=== PATIENT | male | born 1950 | race Caucasian/White ===

== ENCOUNTER 2018-06-04 12:13 | Outpatient (CLI) | payer MEDICARE, BC ==
[2018-06-04 13:01] LABS: CLARITY,URINE CLEAR (Clear); COLOR,URINE STRAW (Yellow); GLUCOSE, URINE NEGATIVE (Neg); KETONES,URINE NEGATIVE (Neg); LEUKOCYTE ESTERASE ,URINE TRACE (Neg); NITRITES, URINE NEGATIVE (Neg); OCCULT BLOOD,URINE NEGATIVE (Neg); PROTEIN,URINE NEGATIVE (Neg); UA COLLECTION TYPE VOIDED; UROBILINOGEN,URINE 0.2 E.U/dL (0.2-1.0)
[2018-06-04 13:04] LABS: BASOPHILS # (AUTO) 0.1 X10'3 (0-0.2); BASOPHILS % (AUTO) 1.1 % (0-1); EOSINOPHILS # (AUTO) 0.2 X10'3 (0-0.9); EOSINOPHILS % (AUTO) 3.1 % (0-6); HEMATOCRIT 45.5 % (35.0-45.0); HEMOGLOBIN 15.1 g/dl (12.0-16.0); LYMPHOCYTES # (AUTO) 1.6 X10'3 (1.1-4.8); LYMPHOCYTES % (AUTO) 25.3 % (21-51); MEAN CORPUSCULAR HEMOGLOBIN 30.3 PG (27.0-31.0); MEAN CORPUSCULAR HGB CONC 33.3 g/dL (33.0-36.5); MEAN CORPUSCULAR VOLUME 91.2 FL (78-98); MEAN PLATELET VOLUME 8.6 FL (7.4-10.4); MONOCYTES # (AUTO) 0.7 X10'3 (0-0.9); MONOCYTES % (AUTO) 10.6 % (2-12); NEUTROPHILS # (AUTO) 3.7 X10'3 (1.8-7.7); NEUTROPHILS % (AUTO) 59.9 % (42-75); PLATELET COUNT 285 X10'3 (140-440); RED BLOOD COUNT 4.99 X10'6 (4.20-5.60); RED CELL DISTRIBUTION WIDTH 14.3 % (11.5-14.5); WHITE BLOOD COUNT 6.2 X10'3 (4.5-11.0)
[2018-06-04 13:07] LABS: CREATININE 0.99 MG/DL (0.40-0.90); SODIUM 139 MMOL/L (135-145); eGFR 56 ML/MIN
[2018-06-04 13:13] LABS: BACTERIA,URINE NONE SEEN /HPF (Neg); RBC,URINE NONE SEEN /HPF (0-2); SQUAMOUS EPITHELIAL CELL,UR FEW /LPF (FEW); WBC,URINE 0-4 /HPF (0-4)
[2018-06-04 13:14] LABS: PROTHROMBIN TIME 10.6 SECONDS (9.0-12.0)
== END 2018-06-04 23:59 | disposition home or self-care (01) ==
LOC: EDSEX → LAB 12:13
PROVIDERS: ATTEND Urology
DX: C61 Malignant neoplasm of prostate (principal); Z91.030 Bee allergy status; Z88.6 Allergy status to analgesic agent; Z01.812 Encounter for preprocedural laboratory examination; Z01.811 Encounter for preprocedural respiratory examination
CPT/HCPCS: 36415; 71046; 81001; 82565; 84132; 84295; 85025; 85610; 87088

== ENCOUNTER 2018-06-05 10:20 | Outpatient (CLI) | payer MEDICARE, BC | END 2018-06-05 23:59 | disposition home or self-care (01) | LOC: RAD 10:20 → EDSEX 10:20 → RAD 23:59 | PROVIDERS: ATTEND Urology | DX: C61 Malignant neoplasm of prostate (principal); Z01.818 Encounter for other preprocedural examination; Z91.030 Bee allergy status; Z88.6 Allergy status to analgesic agent | CPT/HCPCS: 93005 ==

== ENCOUNTER 2018-12-14 09:28 | Outpatient (CLI) | payer MEDICARE, BC | END 2018-12-14 23:59 | disposition home or self-care (01) | LOC: RAD 09:28 | PROVIDERS: ATTEND Urology | DX: C61 Malignant neoplasm of prostate (principal) | CPT/HCPCS: 76856 ==

== ENCOUNTER 2019-05-08 05:52 | Day surgery (SDC) | payer MEDICARE, BC ==
[2019-05-06 14:38] LABS: BASOPHILS % (AUTO) 0.4 % (0-1); EOSINOPHILS # (AUTO) 0.2 X10'3 (0-0.9); EOSINOPHILS % (AUTO) 2.9 % (0-6); LYMPHOCYTES # (AUTO) 1.7 X10'3 (1.1-4.8); LYMPHOCYTES % (AUTO) 20.7 % (21-51); MEAN CORPUSCULAR HEMOGLOBIN 31.1 PG (27.0-31.0); MEAN CORPUSCULAR VOLUME 91.4 FL (78-98); MEAN PLATELET VOLUME 8.8 FL (7.4-10.4); MONOCYTES # (AUTO) 0.7 X10'3 (0-0.9); MONOCYTES % (AUTO) 8.4 % (2-12); NEUTROPHILS # (AUTO) 5.7 X10'3 (1.8-7.7); NEUTROPHILS % (AUTO) 67.6 % (42-75); PRE OP HEMATOCRIT 44.4 % (42.0-52.0); PRE OP HEMOGLOBIN 15.1 g/dL (14.0-17.9); PRE OP PLATELET COUNT 258 X10'3 (140-440); RED BLOOD COUNT 4.85 X10'6 (4.70-6.10); RED CELL DISTRIBUTION WIDTH 14.3 % (11.5-14.5)
[2019-05-06 14:38] LABS: CLARITY,URINE CLEAR (Clear); COLOR,URINE YELLOW (Yellow); GLUCOSE, URINE NEGATIVE (Neg); KETONES,URINE NEGATIVE (Neg); LEUKOCYTE ESTERASE ,URINE NEGATIVE (Neg); NITRITES, URINE NEGATIVE (Neg); OCCULT BLOOD,URINE NEGATIVE (Neg); PH,URINE 5.5 (4.8-8.0); PROTEIN,URINE NEGATIVE (Neg); UROBILINOGEN,URINE 0.2 E.U/dL (0.2-1.0)
[2019-05-06 14:45] LABS: UA COLLECTION TYPE CLN CATCH MIDSTREAM
[2019-05-06 14:52] LABS: ALBUMIN 3.4 G/DL (3.4-5.0); ALBUMIN/GLOBULIN RATIO 0.9 (1.1-1.5); ALKALINE PHOSPHATASE 59 IU/L (46-116); BLOOD UREA NITROGEN 13 MG/DL (7-18); BUN/CREATININE RATIO 12.6 (5.4-32.0); CALCIUM 8.5 MG/DL (8.5-10.1); CHLORIDE 108 MMOL/L (99-107); CREATININE 1.03 MG/DL (0.60-1.10); PRE OP ALT 16 U/L (30-65); PRE OP ANION GAP 6 (8-16); PRE OP AST 19 U/L (10-37); PRE OP BILIRUB, TOTAL 0.4 MG/DL (0.0-1.0); PRE OP GLUCOSE 94 MG/DL (70-104); PRE OP SODIUM 145 MMOL/L (135-145); TOTAL CARBON DIOXIDE 30.8 MMOL/L (24-32); eGFR 72 ML/MIN
[~2019-05-08] VITALS: Ht 172.7 cm; Wt 78.9 kg
[2019-05-08] VITALS (13 sets, daily range): BP systolic 96–136; BP diastolic 45–78
[~2019-05-08 05:52] MED LIST: CHOL200077 PO; FLUT16SP2 BOTHNARES; OMEP40CA13 PO; SILD100T PO; cefazolin/dext.iso 2gm/50ml 50 ML IV ONE; famotidine 20mg tablet PO ONE; ringers solution, lacted 1,000 ML IV SCH
[2019-05-08] MEDS ORDERED: BUPIVAcaine/PF 2.5 mg/ml (0.25%) 30ml vial ONE (06:47)
[2019-05-08] MEDS ORDERED: ceFAZolin 1000mg inj ONE (06:47)
[2019-05-08] MEDS ORDERED: LIDOcaine 1% (10mg/ml) 2ml vial ONE (07:06)
[2019-05-08] MEDS ORDERED: ringers solution, lacted 1,000 ML IV SCH (08:27)
[2019-05-08] MEDS ORDERED: morphine 4 MG/ML inj SYRINge IV PRN (08:30)
[2019-05-08] MEDS ORDERED: ketorolac trometh. 30mg/ml inj. IV ONE (08:30)
[2019-05-08] MEDS ORDERED: acetaminophen 1,000mg/100ml IV 100 ML IV PRN (08:30)
[2019-05-08] MEDS ORDERED: morphine 2 MG/ML inj. syringe IV PRN (08:30)
[2019-05-08] MEDS ORDERED: proCHLORperazine 10 MG/2 ml inj IV PRN (08:30)
[2019-05-08] MEDS ORDERED: meperidine/PF 25mg/ml syringe IV PRN ×3 (08:30)
[2019-05-08] MEDS ORDERED: ondansetron/PF 4mg/2ml inj IV PRN (08:30)
[2019-05-08] MEDS ORDERED: sevoflurane 250ml liquid IH ONE (09:01)
[2019-05-08] MEDS ORDERED: rocuronium 10mg/ml inj IV ONE (09:01)
[2019-05-08] MEDS ORDERED: fentaNYL/PF 50MCG/1 ML 2ML syringe ONE (09:08)
[2019-05-08] MEDS ORDERED: midazolam 2 mg/2 ml injection ONE (09:08)
[2019-05-08] MEDS ORDERED: LIDOcaine 4% LTA kit 4ml solution TP ONE (09:12)
[2019-05-08] MEDS ORDERED: 0.9 % SODIUM CHLORIDE 10 ML VIAL ONE ×2 (09:23→09:24)
[2019-05-08] MEDS ORDERED: ePHEDrine 50MG/ML INJ. ONE (09:24)
[2019-05-08] MEDS ORDERED: dexamethasone sod phosphate 4mg/ml inj. ONE (09:25)
[2019-05-08] MEDS ORDERED: LIDOcaine 2% (20mg/ml) 5ml vial ONE (09:25)
[2019-05-08] MEDS ORDERED: propofol inj 20 ML IV ONE (09:25)
[2019-05-08] MEDS ORDERED: ondansetron/PF 4mg/2ml inj ONE (09:32)
[2019-05-08] MEDS ORDERED: neostigmine methylsulfate 1 MG/ML 10ml vial ONE (10:16)
[2019-05-08] MEDS ORDERED: glycopyrrolate 0.2mg/ml inj ONE (10:16)
[2019-05-08] MEDS ORDERED: ketorolac trometh. 30mg/ml inj. ONE (10:24)
--- NOTE | 2019-05-08 10:37 | NUR ---
Received from OR via [facility], accompanied by Anesthesiologist DR HUDSON and report given by Anesthesiologist. PT DROWSY, DENIES PAIN, ABDOMEN W/3 LAP SITES W/BANDAIDS CDI. Addendum: 05/08/19 at 1112 by Feli Blakely RN Amended: Links added.
--- NOTE | 2019-05-08 11:29 | NUR ---
Received from OR via [facility], accompanied by Anesthesiologist DR KENNY and report given by Anesthesiologist. PT VERY DROWSY, NO S/S OF DISTRESS/DISCOMFORT, LEFT FOOT/ANKLE W/DRSG, FINA WRAP COVERING CDI, TOES PWD, MATE SHIP 1-2 SECONDS. Addendum: 05/08/19 at 1141 by Feli Blakely RN ERROR- WRONG PT.
[2019-05-08] MEDS ORDERED: HYDROcodone/acetaminophen 10/325mg tab PO ONE (12:45)
--- NOTE | 2019-05-08 12:57 | NUR ---
D/C INSTRUCTIONS GIVEN AND GONE OVER W/PT AND PTS WHOM VERBALIZED UNDERSTANDING, PT D/C' D TO HOME VIA W/C TO PRIVATE VEHICLE W/O INCIDENT. Addendum: 05/08/19 at 1319 by Feli Blakely RN Amended: Links added.
== END 2019-05-08 12:57 | disposition home or self-care (01) ==
LOC: PAS 05:52
PROVIDERS: ATTEND Surgery
PROC: 0YU54JZ Supplement Right Inguinal Region with Synthetic Substitute, Percutaneous Endoscopic Approach (ICD-10-PCS; principal; 2019-05-08 09:01)
DX: K40.91 Unilateral inguinal hernia, without obstruction or gangrene, recurrent (principal); E78.5 Hyperlipidemia, unspecified; K21.9 Gastro-esophageal reflux disease without esophagitis; Z79.82 Long term (current) use of aspirin; Z79.899 Other long term (current) drug therapy; Z88.8 Allergy status to other drugs, medicaments and biological substances; Z85.46 Personal history of malignant neoplasm of prostate; Z98.890 Other specified postprocedural states; I49.9 Cardiac arrhythmia, unspecified; R10.84 Generalized abdominal pain; Z90.79 Acquired absence of other genital organ(s)
CPT/HCPCS: 36415; 49651; 80053; 81003; 82948; 85025; 93005; C1713; C1781; J0131; J0690; J1100; J1885; J2001; J2175; J2250; J2405; J2704; J2710; J3010; J3490; A4215; A4314; A4618; A6258; J7120